=== PATIENT | male | born 1965 | race Caucasian/White ===

== ENCOUNTER 2016-10-06 08:47 | Emergency (ER) | payer MEDICAID, OTHER ==
[2016-10-06 08:58] VITALS: BP 140/92
--- NOTE | 2016-10-06 09:01 | EDM.PDOC ---
ED HPI Trauma - General Chief Complaint: Upper Extremity Injury/Pain Stated Complaint: R ARM INJURY/FALL Time Seen by Provider: 10/06/16 08:56 Source: Reports: Patient, RN notes reviewed, Significant Other History Limitations: Reports: No limitations - History of Present Illness INITIAL COMMENTS - FREE TEXT/NARRATIVE: The patient states that he fell off a [employer] truck yesterday afternoon, 2016. He states that he struck the posterior aspect of his right elbow, and now presents with pain and swelling to the area. He is concerned, because he had right arm ligament repair (biceps tendon?) in 2014. He is otherwise uninjured. Allergies/ADRs: Allergies Penicillins Allergy (Verified 10/06/16 08:55) Anaphylactic Shock Home Medications: Ambulatory Orders Ascorbate Calcium [Vitamin C] 500 mg PO DAILY 09/25/16 [Confirmed 09/25/16] Cyclobenzaprine [Flexeril] 10 mg PO QAM 09/25/16 [Confirmed 09/25/16] Fenofibric Acid (Choline) [Fenofibric Acid] 135 mg PO DAILY 09/25/16 [Confirmed 09/25/16] Furosemide [Lasix] 20 mg PO QPM 09/25/16 [Confirmed 09/25/16] Furosemide [Lasix] 40 mg PO QAM 09/25/16 [Confirmed 09/25/16] Hydrocodone/Acetaminophen [Hydrocodon-Acetaminophn 10-325] 1 tab PO Q6H PRN [Confirmed 09/25/16] Metoprolol Succinate 100 mg PO DAILY 09/25/16 [Confirmed 09/25/16] Nabumetone [Relafen] 750 mg PO BID 09/25/16 [Confirmed 09/25/16] Omeprazole 20 mg PO DAILY 09/25/16 [Confirmed 09/25/16] Simvastatin [Zocor] 10 mg PO DAILY 09/25/16 [Confirmed 09/25/16] metFORMIN HCl [Metformin HCl] 500 mg PO BID 09/25/16 [Confirmed 09/25/16] traMADol [Ultram] 50 mg PO BID 09/25/16 [Confirmed 09/25/16] Past Medical History HEENT History: Reports: Hard of hearing, Impaired vision Other HEENT History: wears glasses, has hearing aids Cardiovascular History: Reports: High cholesterol, Hypertension Respiratory History: Reports: Sleep apnea Gastrointestinal History: Reports: GERD Musculoskeletal History: Reports: Back pain, chronic Other Musculoskeletal History: disk herniation of L4-L5 Endocrine/Metabolic History: Reports: Diabetes, type II, Obesity/BMI 30+ - Infectious Disease History Infectious Disease History: Reports: Chicken pox - Past Surgical History GI Surgical History: Reports: Appendectomy Musculoskeletal Surgical History: Reports: Arthroscopic knee (right), Other ( see below) (Right biceps tendon repair 2014) Social & Family History - Tobacco Use Smoking Status *Q: Current Every Day Smoker Years of Tobacco use: 50 Packs/Tins Daily: 1 - Alcohol Use Alcohol Use History: Yes Alcohol Use Frequency: Socially - Recreational Drug Use Recreational Drug Use: No - Living Situation & Occupation Living situation: Reports: single, with significant other (Girlfriend) Occupation: unemployed Review of Systems - Review of Systems Review Of Systems: See Below Constitutional: Reports: no symptoms Eyes: Reports: no symptoms Ears: Reports: no symptoms Nose: Reports: no symptoms Mouth/Throat: Reports: no symptoms Respiratory: Reports: No Symptoms Cardiovascular: Reports: no symptoms GI/Abdominal: Reports: No symptoms Genitourinary: Reports: no symptoms Musculoskeletal: Reports: no symptoms Skin: Reports: no symptoms Neurological: Reports: No Symptoms Psychiatric: Reports: no symptoms Trauma Exam - Physical Exam Exam: See Below Exam Limited By: No limitations General Appearance: Reports: alert, WD/WN, no apparent distress Extremities: Reports: other (There is erythema and mild swelling to the posterior aspect of the patient's right elbow. No abrasion. The patient reports tenderness to palpation of the erythematous area. The patient has painless active FROM to the right elbow. He denies any tingling or numbness to the right forearm, hand, or fingers. Strong distal pulses.) Course - Vital Signs Last Recorded V/S: Last Vital Signs Temp 36.6 C 10/06/16 08:55 Pulse 92 10/06/16 08:55 Resp 20 10/06/16 08:55 BP 140/92 H 10/06/16 08:55 Pulse Ox 94 L 10/06/16 08:55 - Radiology Interpretation Free Text/Narrative:: 5-view radiographs of the left elbow do not appear to demonstrate any acute injury, such as fracture or dislocation. There is evidence of prior ligament repair. Formal read per the Radiologist pending. - Re-Assessments/Exams Free Text/Narrative Re-Assessment/Exam: 10/06/16 10:23 X-ray results discussed with the patient and his partner. No acute injury seen on x-rays. I am recommending ice and ibuprofen over the weekend, and if he is still having significant pain by Saturday, he can followup with Dr. Yates. Departure - Departure Time of Disposition: 10:24 Disposition: Home, Self-Care 01 Condition: good Clinical Impression: Contusion of right elbow Instructions: Elbow Contusion, [id number] Referrals: Marzena Osorio PA-C [Primary Care Provider] - Ted Yates MD [Physician] - Forms: ED Department Discharge Additional Instructions: You were seen in the emergency room today after falling off a [employer] truck and injuring your right elbow. X-rays done in the ER show no fracture or dislocation. You have MOST LIKELY bruised your right elbow. We recommend apply an ice pack to the back of your right elbow for 10-15 minutes , 4-5 times a day, for 2 days. We recommend you take [id number] ibuprofen, 2-3 tablets (400-600 mg) every 8 hours, with food, as needed for discomfort. If your elbow is still bothering you by this coming week, please followup with the Orthopedic Surgeon Dr. Yates. If any other problems, please do not hesitate to return to the ER.
--- NOTE | 2016-10-07 09:26 | CR ---
Right elbow: Four views of the right elbow were obtained. Comparison: Previous right elbow x-ray of 10/26/12 and MRI right elbow study of 11/04/12. Findings: Surgical change is seen from prior biceps tendon repair. Joint spaces within the wrist are maintained. No discrete joint effusion is seen. No acute fracture or other abnormality is seen. Impression: 1. Previous biceps tendon repair. 2. No acute abnormality is identified on right elbow study. Diagnostic code #2
== END 2016-10-06 10:30 | disposition home or self-care (01) ==
LOC: JD.ED 08:47
DX: S50.01XA Contusion of right elbow, initial encounter (principal); E78.00 Pure hypercholesterolemia, unspecified; K21.9 Gastro-esophageal reflux disease without esophagitis; Z90.49 Acquired absence of other specified parts of digestive tract; F17.210 Nicotine dependence, cigarettes, uncomplicated; Z88.0 Allergy status to penicillin; Z79.899 Other long term (current) drug therapy; W17.89XA Other fall from one level to another, initial encounter
CPT/HCPCS: 73080-26-RT; 73080-RT; 99282; 99283

== ENCOUNTER 2016-10-29 07:00 | Day surgery (SDC) | payer MEDICAID ==
[~2016-10-29 07:00] MED LIST: Lactated Ringers 1,000 ML IV SCH; Lidocaine 1%/Sod Bicarbonate in NS 8.4% 1 ML Syringe IV PRN; Sodium Chloride 0.9% 10 ML Syringe FLUSH PRN
[2016-10-29] MEDS ORDERED: Midazolam 1 MG/ML 2 ML SDV ONE (07:12)
[2016-10-29] MEDS ORDERED: Lidocaine 1% 4 ML ONE (07:12)
[2016-10-29] MEDS ORDERED: Propofol 200 MG/20 ML SDV ONE (07:12)
[2016-10-29] MEDS ORDERED: fentaNYL 100 MCG/2 ML SDV ONE (07:12)
--- NOTE | 2016-10-29 07:25 | PCM.PREANE ---
Preanesthetic Assessment - Anesthesia/Transfusion/Family Hx Anesthesia History: Prior Anesthesia Without Reaction Family History of Anesthesia Reaction: No Transfusion History: No Prior Transfusion(s) - Review of Systems General: No Symptoms Pulmonary: No Symptoms Cardiovascular: No Symptoms, Dyspnea on Exertion Gastrointestinal: No symptoms Neurological: No Symptoms Other: Reports: Easy Bruising, Diabetes - Physical Assessment NPO Status Date: 10/28/16 NPO Status Time: 22:00 Pulse: 81 O2 Sat by Pulse Oximetry: 93 Respiratory Rate: 19 Blood Pressure: 149/81 Temperature: 97.8 F Height: 5 ft 5 in Weight: 131.542 kg ASA Class: 3 Mental Status: Alert & Oriented x3 Airway Class: Mallampati = 2 Dentition: Reports: Edentulous Thyro-Mental Finger Breadths: 2 Mouth Opening Finger Breadths: 3 ROM/Head Extension: Full Lungs: Clear to auscultation, Normal respiratory effort Cardiovascular: Regular Rate, Regular Rhythm - Lab Values: 10/25/16 Lytes WNL BUN 19 Cr 1.3 Hgb 15.1 PLT 302 - Imaging/EKG Impressions: EKG 10/29/16 SR 78 - Allergies Allergies/Adverse Reactions: Allergies Allergy/AdvReac Type Severity Reaction Status Date / Time Penicillins Allergy Anaphylactic Verified 10/26/16 13:52 Shock - Blood Blood Available: No - Anesthesia Plan Pre-Op Medication Ordered: Beta Amanda Beta Amanda: Metoprolol Med Last Dose Date: 10/28/16 Med Last Dose Time: 11:00 - Acknowledgements Anesthesia Type Planned: MAC Pt an Appropriate Candidate for the Planned Anesthesia: Yes Alternatives and Risks of Anesthesia Discussed w Pt/Guardian: Yes Pt/Guardian Understands and Agrees with Anesthesia Plan: Yes PreAnesthesia Questionnaire HEENT History: Reports: Hard of hearing, Impaired vision Other HEENT History: wears glasses, has hearing aids Cardiovascular History: Reports: High cholesterol, Hypertension Other Cardiovascular History: edema Respiratory History: Reports: Sleep apnea Gastrointestinal History: Reports: GERD Other Gastrointestinal History: umbilical hernia, R groin pain, stomach disorder Genitourinary History: Reports: None SALES EXEC History: Reports: None Musculoskeletal History: Reports: Back pain, chronic Other Musculoskeletal History: disk herniation of L4-L5 Neurological History: Reports: None Psychiatric History: Reports: None Endocrine/Metabolic History: Reports: Diabetes, type II, Obesity/BMI 30+ Hematologic History: Reports: None Immunologic History: Reports: None Oncologic (Cancer) History: Reports: None Dermatologic History: Reports: None - Infectious Disease History Infectious Disease History: Reports: Chicken pox - Past Surgical History Head Surgeries/Procedures: Reports: None GI Surgical History: Reports: Appendectomy Musculoskeletal Surgical History: Reports: Arthroscopic knee, Knee replacement, Other (see below) Other Musculoskeletal Surgeries/Procedures:: Right arm ligament repair - SUBSTANCE USE Smoking Status *Q: Current Every Day Smoker (1 ppd for 20 years) Tobacco Use Within Last Twelve Months: Cigarettes Second Hand Smoke Exposure: Yes Days Per Week of Alcohol Use: 1 Number of Drinks Per Day: 6 Total Drinks Per Week: 6 Date of Last Drink: 10/28/16 Time of Last Drink: 19:30 Recreational Drug Use History: No - HOME MEDS Home Medications: Home Meds Ascorbate Calcium [Vitamin C] 500 mg PO DAILY 09/25/16 [History] Cyclobenzaprine [Flexeril] 10 mg PO QAM 09/25/16 [History] Fenofibric Acid (Choline) [Fenofibric Acid] 135 mg PO DAILY 09/25/16 [History] Furosemide [Lasix] 20 mg PO QPM 09/25/16 [History] Furosemide [Lasix] 40 mg PO QAM 09/25/16 [History] Hydrocodone/Acetaminophen [Hydrocodon-Acetaminophn 10-325] 1 tab PO Q6H PRN [History] Metoprolol Succinate 100 mg PO DAILY 09/25/16 [History] Nabumetone [Relafen] 750 mg PO BID 09/25/16 [History] Omeprazole 20 mg PO DAILY 09/25/16 [History] Simvastatin [Zocor] 10 mg PO DAILY 09/25/16 [History] metFORMIN HCl [Metformin HCl] 500 mg PO BID 09/25/16 [History] traMADol [Ultram] 50 mg PO BID 09/25/16 [History] - CURRENT (IN HOUSE) MEDS Current Meds: Current Medications Lactated Ringer's (Ringers, Lactated) 1,000 mls @ 125 mls/hr IV ASDIRECTED MUNA Stop: 10/29/16 23:00 Vancomycin HCl 1 gm/ Sodium (Chloride) 250 mls @ 250 mls/hr IV Q1H MUNA Stop: 10/29/16 08:29 Lidocaine/Sodium Bicarbonate (Buffered Lidocaine 1% In Ns 8.4%) 0.25 ml IV ONETIME PRN PRN Reason: Prior to IV Start Stop: 10/29/16 18:00 Sodium Chloride (Saline Flush) 10 ml FLUSH ASDIRECTED PRN PRN Reason: Keep Vein Open Stop: 10/29/16 18:00 Vancomycin HCl (Pharmacy To Dose - Vancomycin) 1 dose .XX ASDIRECTED MUNA Discontinued Medications Fentanyl (Sublimaze) Confirm Administered Dose 100 mcg .ROUTE .STK-MED ONE Stop: 10/29/16 07:13 Lidocaine HCl (Xylocaine-Mpf 1%) Confirm Administered Dose 4 mls @ as directed .ROUTE .STK-MED ONE Stop: 10/29/16 07:13 Midazolam HCl (Versed 1 Mg/Ml) Confirm Administered Dose 2 mg .ROUTE .STK-MED ONE Stop: 10/29/16 07:13 Propofol (Diprivan 20 Ml) Confirm Administered Dose 200 mg .ROUTE .STK-MED ONE Stop: 10/29/16 07:13
[2016-10-29] MEDS ORDERED: Lidocaine 1% with EPINEPHrine 1:100,000 20 ML MDV ONE (07:28)
[2016-10-29] MEDS ORDERED: Bupivacaine 0.5%/EPINEPHrine 1:200,000 50 ML MDV ONE (07:28)
[2016-10-29] MEDS ORDERED: Ondansetron 4 MG/2 ML SDV IVPUSH PRN (08:18)
--- NOTE | 2016-10-29 09:00 | PCM48HPAN ---
Post Anesthesia Note - EVALUATION WITHIN 48HRS OF ANESTHETIC Vital Signs in Normal Range: Yes Patient Participated in Evaluation: Yes Respiratory Function Stable: Yes Airway Patent: Yes Cardiovascular Function Stable: Yes Hydration Status Stable: Yes Pain Control Satisfactory: Yes Nausea and Vomiting Control Satisfactory: Yes Mental Status Recovered: Yes
--- NOTE | 2016-10-29 09:04 | PCM.OPNOTE ---
- General Post-Op/Procedure Note Date of Surgery/Procedure: 10/29/16 Operative Procedure(s): open umbilical hernia repair with mesh Ventrelex ST Findings: 2 cm defect with an associated superior 3 mm satellite defect. Herniated omental fat with incarceration. Pre Op Diagnosis: symptomatic umbilical hernia Post-Op Diagnosis: incarcerated umbilical hernia Anesthesia Technique: Local, MAC, Moderate sedation Primary Surgeon: El Tenorio Pathology: none EBL in mLs: 1 Complications: None Condition: Good Free Text/Narrative:: Have the supine positioning the abdomen was prepped and draped sterilely for an open umbilical hernia repair. After local analgesia was given a supraumbilical curvilinear incision was made through the skin and subcutaneous tissues with a knife. The incision was deepened with Metzenbaums scissors to the fascia. I circumferentially the umbilical hernia sac from the surrounding subcutaneous tissues. There was chronic scarring in place. There was a small, 3 mm defect just above the umbilical hernia defect. I excised the sac. The sac contained omental fat, which was reduced into the abdominal cavity. A combined th two defects into one. The diameter, was approximately 2 cm. A 4 cm mesh was inserted into the defect and I closed the fascia over the mesh with interrupted 2-0 Ethibond. The umbilicus was reattached to the midline. The subcutaneous tissues were closed with Vicryl. The skin was closed with Vicryl. Steri-Strips and gauze were used for the dressing.
[2016-10-29 09:47] VITALS: BP 144/88
== END 2016-10-29 09:31 | disposition home or self-care (01) ==
LOC: JD.SDS 07:00
PROVIDERS: ATTEND Surgery
PROC: 0WUF0JZ Supplement Abdominal Wall with Synthetic Substitute, Open Approach (ICD-10-PCS; principal; 2016-10-29)
DX: K42.0 Umbilical hernia with obstruction, without gangrene (principal); M19.90 Unspecified osteoarthritis, unspecified site; I10 Essential (primary) hypertension; G89.29 Other chronic pain; K21.9 Gastro-esophageal reflux disease without esophagitis; M51.26 Other intervertebral disc displacement, lumbar region; E78.5 Hyperlipidemia, unspecified; E66.01 Morbid (severe) obesity due to excess calories; G47.33 Obstructive sleep apnea (adult) (pediatric); H90.3 Sensorineural hearing loss, bilateral; F17.210 Nicotine dependence, cigarettes, uncomplicated; E78.00 Pure hypercholesterolemia, unspecified; Z88.0 Allergy status to penicillin; Z79.84 Long term (current) use of oral hypoglycemic drugs; Z79.899 Other long term (current) drug therapy; Z96.659 Presence of unspecified artificial knee joint; Z90.49 Acquired absence of other specified parts of digestive tract; Z98.890 Other specified postprocedural states; Z68.42 Body mass index [BMI] 45.0-49.9, adult
CPT/HCPCS: 49587; 82962; 93005; J2250; J3010; J3370; J7050; J7120; 00750; C1781; J2704

== ENCOUNTER 2017-06-19 09:13 | Day surgery (SDC) | payer MEDICAID ==
[~2017-06-19 09:13] MED LIST changes: -Lidocaine 1%/Sod Bicarbonate in NS 8.4% 1 ML Syringe IV PRN; +Lidocaine 1%/Sod Bicarbonate in NS 8.4% 1 ML Syringe PRN
--- NOTE | 2017-06-19 09:39 | PCM.PREANE ---
Preanesthetic Assessment - Anesthesia/Transfusion/Family Hx Anesthesia History: Prior Anesthesia Without Reaction Family History of Anesthesia Reaction: No Transfusion History: No Prior Transfusion(s) - Review of Systems General: No Symptoms Pulmonary: Shortness of Breath, Cough (Mostly in the morning. ), Sputum, Other ( MARY JANE, Smoker) Cardiovascular: No Symptoms Gastrointestinal: Other (Denies GERD) Neurological: Difficulty Walking Other: Reports: Diabetes, Depression - Physical Assessment NPO Status Date: 06/18/17 NPO Status Time: 17:00 Pulse: 98 O2 Sat by Pulse Oximetry: 94 Respiratory Rate: 20 Blood Pressure: 126/93 Temperature: 36.2 C Weight: 132.903 kg ASA Class: 3 Mental Status: Alert & Oriented x3 Airway Class: Mallampati = 2 Dentition: Reports: Dentures Thyro-Mental Finger Breadths: 3 Mouth Opening Finger Breadths: 3 ROM/Head Extension: Full Lungs: Clear to Auscultation, Normal Respiratory Effort Cardiovascular: Regular Rate, Regular Rhythm - Allergies Allergies/Adverse Reactions: Allergies Allergy/AdvReac Type Severity Reaction Status Date / Time Penicillins Allergy Anaphylactic Verified 06/18/17 08:27 Shock - Acknowledgements Anesthesia Type Planned: MAC Pt an Appropriate Candidate for the Planned Anesthesia: Yes Alternatives and Risks of Anesthesia Discussed w Pt/Guardian: Yes Pt/Guardian Understands and Agrees with Anesthesia Plan: Yes PreAnesthesia Questionnaire HEENT History: Reports: Hard of Hearing, Impaired Vision Other HEENT History: wears glasses, has hearing aids Cardiovascular History: Reports: High Cholesterol, Hypertension Respiratory History: Reports: Sleep Apnea, SOB Gastrointestinal History: Reports: GERD Other Gastrointestinal History: right groin pain, rectal bleeding, umbilical hernia repair, stomach disorder Genitourinary History: Reports: None PEDIATRIC NEPHROLOGIST History: Reports: None Musculoskeletal History: Reports: Arthritis, Back Pain, Chronic Other Musculoskeletal History: disk herniation of L4-L5 Neurological History: Reports: None Psychiatric History: Reports: None Endocrine/Metabolic History: Reports: Diabetes, Type II, Obesity/BMI 30+ Hematologic History: Reports: None Immunologic History: Reports: None Oncologic (Cancer) History: Reports: None Dermatologic History: Reports: None - Infectious Disease History Infectious Disease History: Reports: Chicken Pox - Past Surgical History Head Surgeries/Procedures: Reports: None Respiratory Surgical History: Reports: None GI Surgical History: Reports: Appendectomy, Colonoscopy Female Surgical History: Reports: None Male Surgical History: Reports: None Endocrine Surgical History: Reports: None Neurological Surgical History: Reports: None Musculoskeletal Surgical History: Reports: Arthroscopic Knee, Knee Replacement, Other (See Below) Other Musculoskeletal Surgeries/Procedures:: Right arm ligament repair Dermatological Surgical History: Reports: None - SUBSTANCE USE Smoking Status *Q: Current Every Day Smoker Tobacco Use Within Last Twelve Months: Cigarettes Second Hand Smoke Exposure: Yes Days Per Week of Alcohol Use: 1 Number of Drinks Per Day: 6 Total Drinks Per Week: 6 Recreational Drug Use History: No - HOME MEDS Home Medications: Home Meds Ascorbate Calcium [Vitamin C] 500 mg PO DAILY 09/25/16 [History] Cyclobenzaprine [Flexeril] 10 mg PO QAM 09/25/16 [History] Fenofibric Acid (Choline) [Fenofibric Acid] 135 mg PO DAILY 09/25/16 [History] Furosemide [Lasix] 20 mg PO QPM 09/25/16 [History] Furosemide [Lasix] 40 mg PO QAM 09/25/16 [History] Hydrocodone/Acetaminophen [Hydrocodon-Acetaminophn 10-325] 1 tab PO Q6H PRN [History] Metoprolol Succinate 100 mg PO DAILY 09/25/16 [History] Nabumetone [Relafen] 750 mg PO BID PRN 09/25/16 [History] Omeprazole 20 mg PO DAILY 09/25/16 [History] Simvastatin [Zocor] 10 mg PO BEDTIME 09/25/16 [History] metFORMIN HCl [Metformin HCl] 500 mg PO BID 09/25/16 [History] traMADol [Ultram] 50 mg PO BID PRN 09/25/16 [History] Cholestyramine/Sucrose [Cholestyramine] 1 dose PO BID 06/18/17 [History] Cyanocobalamin (Vitamin B-12) [Vitamin B-12] 2,000 mcg PO DAILY 06/18/17 [ History] Escitalopram [Lexapro] 20 mg PO DAILY 06/18/17 [History] Hydrocortisone [Proctosol-HC] 1 dose TOP BEDTIME 06/18/17 [History] - CURRENT (IN HOUSE) MEDS Current Meds: Current Medications Lactated Ringer's (Ringers, Lactated) 1,000 mls @ 125 mls/hr IV ASDIRECTED MUNA Stop: 06/19/17 23:00 Lidocaine/Sodium Bicarbonate (Buffered Lidocaine 1% In Ns 8.4%) 0.25 ml .XX ONETIME PRN PRN Reason: Prior to IV Start Stop: 06/19/17 18:00 Sodium Chloride (Saline Flush) 10 ml FLUSH ASDIRECTED PRN PRN Reason: Keep Vein Open Stop: 06/19/17 18:00
[2017-06-19] MEDS ORDERED: Propofol 200 MG/20 ML SDV ONE ×2 (10:48→10:58)
[2017-06-19] MEDS ORDERED: Lidocaine 1% 2 ML ONE ×2 (10:49)
--- NOTE | 2017-06-19 11:06 | PCM.OPNOTE ---
- General Post-Op/Procedure Note Date of Surgery/Procedure: 06/19/17 Operative Procedure(s): colonoscopy with ileal and rectal biopsies Findings: normal colonoscopy but poor bowel prep Pre Op Diagnosis: chronic diarrhea Post-Op Diagnosis: same Anesthesia Technique: MAC, Moderate Sedation Primary Surgeon: El Tenorio Pathology: ileal and rectal biopsies EBL in mLs: 0 Complications: None Condition: Good Free Text/Narrative:: After adequate IV sedation and analgesia was obtained with monitoring the patient was placed on his left side. Perianal inspection and digital rectal examination were normal. A lubricated colonoscope was inserted into the rectum and advanced to the cecum without difficulty. The bowel preparation was poor. The cecum was endoscopically normal. I intubated the ileum which was grossly normal but performed a random biopsy for histologic review. The ascending colon transverse and descending colons were also normal with no inflammatory changes. The sigmoid was unremarkable. The rectum likewise in both views was unremarkable. Random rectal biopsy was taken in this area. Photographs were taken for the patient and for the medical record. There were no complications.
[2017-06-19 11:42] VITALS: BP 122/84
== END 2017-06-19 11:24 | disposition home or self-care (01) ==
LOC: JD.SDS 09:13
PROVIDERS: ATTEND Surgery
DX: K52.9 Noninfective gastroenteritis and colitis, unspecified (principal); G89.29 Other chronic pain; M54.5 Low back pain; F32.9 Major depressive disorder, single episode, unspecified; K21.9 Gastro-esophageal reflux disease without esophagitis; E78.5 Hyperlipidemia, unspecified; E66.01 Morbid (severe) obesity due to excess calories; G47.33 Obstructive sleep apnea (adult) (pediatric); E11.9 Type 2 diabetes mellitus without complications; Z88.0 Allergy status to penicillin; Z79.84 Long term (current) use of oral hypoglycemic drugs; Z79.899 Other long term (current) drug therapy; Z90.49 Acquired absence of other specified parts of digestive tract; F17.210 Nicotine dependence, cigarettes, uncomplicated; Z68.42 Body mass index [BMI] 45.0-49.9, adult
CPT/HCPCS: 45380; J7120; 00810; 88305; J2704

== ENCOUNTER 2017-07-23 19:53 | Emergency (ER) | payer MEDICAID ==
[2017-07-23 20:12] VITALS: BP 152/90
--- NOTE | 2017-07-23 20:23 | EDM.PDOC ---
ED HPI GENERAL MEDICAL PROBLEM - General Chief Complaint: Lower Extremity Injury/Pain Stated Complaint: RIGHT KNEE PAIN Time Seen by Provider: 07/23/17 20:22 Source of Information: Reports: Patient History Limitations: Reports: No Limitations - History of Present Illness INITIAL COMMENTS - FREE TEXT/NARRATIVE: Patient presents with acute right knee pain. He states he was lifting a car battery into his vehicle and later in the day right knee began hurting. He denies any fall, trauma, twisting, or other change in activity. He denies any radiation of pain. He states he had a right knee scope done about [address] Eastman. He feels knee is slightly swollen, denies any redness or warmth. He states he tried tramadol without any relief of pain. Patient is well known to me, and is also on an anti-inflammatory medication, nabumetone, which he takes BID. He states neither medication have improved symptoms any. Right Knee Pain Score (Numeric/FACES): 10 - Related Data Allergies Allergy/AdvReac Type Severity Reaction Status Date / Time Penicillins Allergy Anaphylactic Verified 07/23/17 20:12 Shock Home Meds: Home Meds Ascorbate Calcium [Vitamin C] 500 mg PO DAILY 09/25/16 [History] Cyclobenzaprine [Flexeril] 10 mg PO QAM 09/25/16 [History] Fenofibric Acid (Choline) [Fenofibric Acid] 135 mg PO DAILY 09/25/16 [History] Furosemide [Lasix] 20 mg PO QPM 09/25/16 [History] Furosemide [Lasix] 40 mg PO QAM 09/25/16 [History] Hydrocodone/Acetaminophen [Hydrocodon-Acetaminophn 10-325] 1 tab PO BEDTIME [History] Metoprolol Succinate 100 mg PO DAILY 09/25/16 [History] Nabumetone [Relafen] 750 mg PO BID PRN 09/25/16 [History] Omeprazole 20 mg PO DAILY 09/25/16 [History] Simvastatin [Zocor] 10 mg PO BEDTIME 09/25/16 [History] metFORMIN HCl [Metformin HCl] 1,000 mg PO BID 09/25/16 [History] traMADol [Ultram] 100 mg PO BID PRN 09/25/16 [History] Cholestyramine/Sucrose [Cholestyramine] 1 dose PO BID 06/18/17 [History] Cyanocobalamin (Vitamin B-12) [Vitamin B-12] 2,000 mcg PO DAILY 06/18/17 [ History] Escitalopram [Lexapro] 20 mg PO DAILY 06/18/17 [History] Hydrocortisone [Proctosol-HC] 1 applic TOP BEDTIME 06/18/17 [History] Past Medical History HEENT History: Reports: Hard of Hearing, Impaired Vision Other HEENT History: wears glasses, has hearing aids Cardiovascular History: Reports: High Cholesterol, Hypertension Respiratory History: Reports: Sleep Apnea, SOB Gastrointestinal History: Reports: GERD Other Gastrointestinal History: right groin pain, rectal bleeding, umbilical hernia repair, stomach disorder Genitourinary History: Reports: None [employer] SUPER[employer]OR History: Reports: None Musculoskeletal History: Reports: Arthritis, Back Pain, Chronic Other Musculoskeletal History: disk herniation of L4-L5 Neurological History: Reports: None Psychiatric History: Reports: None Endocrine/Metabolic History: Reports: Diabetes, Type II, Obesity/BMI 30+ Hematologic History: Reports: None Immunologic History: Reports: None Oncologic (Cancer) History: Reports: None Dermatologic History: Reports: None - Infectious Disease History Infectious Disease History: Reports: Chicken Pox - Past Surgical History Head Surgeries/Procedures: Reports: None HEENT Surgical History: Reports: None Cardiovascular Surgical History: Reports: None Respiratory Surgical History: Reports: None GI Surgical History: Reports: Appendectomy, Colonoscopy, Hernia Repair/Other Male Surgical History: Reports: None Endocrine Surgical History: Reports: None Neurological Surgical History: Reports: None Musculoskeletal Surgical History: Reports: Arthroscopic Knee, Knee Replacement, Other (See Below) Other Musculoskeletal Surgeries/Procedures:: Right arm ligament repair Dermatological Surgical History: Reports: None Social & Family History - Family History Family Medical History: Noncontributory - Tobacco Use Smoking Status *Q: Former Smoker Years of Tobacco use: 30 Packs/Tins Daily: 1 Used Tobacco, but Quit: Yes Month Tobacco Last Used: 07/2017 Second Hand Smoke Exposure: Yes - Caffeine Use Caffeine Use: Reports: None - Alcohol Use Days Per Week of Alcohol Use: 1 Number of Drinks Per Day: 6 Total Drinks Per Week: 6 - Recreational Drug Use Recreational Drug Use: No - Living Situation & Occupation Living situation: Reports: Single, with Significant Other Occupation: Unemployed Review of Systems - Review of Systems Review Of Systems: See Below Constitutional: Reports: No Symptoms Respiratory: Reports: No Symptoms Cardiovascular: Reports: No Symptoms Musculoskeletal: Reports: Other (right knee pain, anterior aspect, pain is without radiation or swelling at present. Has pain with walking, but not at rest. ) Skin: Reports: No Symptoms Neurological: Reports: No Symptoms Psychiatric: Reports: No Symptoms ED EXAM, GENERAL - Physical Exam Exam: See Below Exam Limited By: No Limitations General Appearance: Alert, WD/WN, Mild Distress (patient states he is mostly uncomfortable lying on hospital bed, not so much due to any acute pain at rest. ) Respiratory/Chest: Lungs Clear, Normal Breath Sounds Cardiovascular: Regular Rate, Rhythm, No Edema, No Murmur Peripheral Pulses: 2+: Femoral (R), Popliteal (R), Posterior Tibial (R), Dorsalis Pedis (R) Extremities: Normal Inspection (right knee without any swelling, redness, warmth. Skin is intact, no lacerations, bruising. ), Limited Range of Motion ( patient has pain with flexion of knee past 90 degrees. No pain with extension, no pain with valus/vargus stressing. Has no pain to palpation over anterior aspect of patella. No pain to palpation of posterior right knee). No: Joint Swelling, Aki's Sign, Redness Neurological: Alert, Oriented, Normal Cognition Psychiatric: Normal Affect, Normal Mood Skin Exam: Warm, Dry, Intact, Normal Color Course - Vital Signs Text/Narrative:: Patient is very well known to my as I also see him routinely in the clinic as his PCP. Patient has history of chronic pain, either to both knees or to his lower back. He states he was lifting a car battery into his vehicle this morning and felt acute onset of right knee pain. He states knee was swollen to the size of a basketball earlier but now on exam he does not have any noted swelling. He has limited ROM with flexion to 90 degrees, but pain present with further flexion. No pain to palpation of right knee, or with full extension of right knee. There is no ligamentous laxity noted, patient does not have pain with valgus/varus stressing. Discussed with patient that I did not feel an xray was necessary, but rather will place in a knee immobilzer and have him followup in clinic, or with orthopedic. Discussed that patient may need an MRI, but this can be done as an outpatient. Patient has tramadol, which he states has not given him any relief of his pain. Will provide patient with a limited qyt of hydrocodone 5-325, and he will need to f/u in clinic or with ortho for further pain management. Last Recorded V/S: Last Vital Signs Temp 96.0 F 07/23/17 20:09 Pulse 80 07/23/17 20:09 Resp 16 07/23/17 20:09 BP 152/90 H 07/23/17 20:09 Pulse Ox 93 L 07/23/17 20:09 Departure - Departure Time of Disposition: 20:39 Disposition: Home, Self-Care 01 Condition: Good Clinical Impression: Right knee pain - Discharge Information Instructions: Knee Immobilizer, [id number] Referrals: Marzena Pagan PA-C [Primary Care Provider] - Forms: ED Department Discharge
== END 2017-07-23 21:00 | disposition home or self-care (01) ==
LOC: JD.ED 19:53
DX: M25.561 Pain in right knee (principal); I10 Essential (primary) hypertension; E11.9 Type 2 diabetes mellitus without complications; E78.00 Pure hypercholesterolemia, unspecified; Z88.0 Allergy status to penicillin; Z79.899 Other long term (current) drug therapy; Z79.84 Long term (current) use of oral hypoglycemic drugs; Z87.891 Personal history of nicotine dependence
CPT/HCPCS: 99283

== ENCOUNTER 2017-07-24 09:04 | Day surgery (SDC) | payer MEDICAID ==
[~2017-07-24 09:04] MED LIST changes: +Lidocaine 1%/Sod Bicarbonate in NS 8.4% 1 ML Syringe IV PRN; -Lidocaine 1%/Sod Bicarbonate in NS 8.4% 1 ML Syringe PRN; +Midazolam 1 MG/ML 2 ML SDV ONE; +Ondansetron 4 MG/2 ML SDV ONE; +Propofol 200 MG/20 ML SDV ONE; +fentaNYL 250 MCG/5 ML SDV ONE
[2017-07-24] MEDS ORDERED: Lidocaine 1% with EPINEPHrine 1:100,000 20 ML MDV ONE (09:05)
[2017-07-24] MEDS ORDERED: Bupivacaine 0.5%/EPINEPHrine 1:200,000 50 ML MDV ONE (09:06)
[2017-07-24] MEDS ORDERED: Albuterol 0.083% 2.5 MG/3 ML Neb Soln NEB ONE (10:30)
[2017-07-24] MEDS ORDERED: Metoprolol Succinate 50 MG Tab.ER PO SCH (10:30)
--- NOTE | 2017-07-24 10:36 | PCM.PREANE ---
Preanesthetic Assessment - Anesthesia/Transfusion/Family Hx Anesthesia History: Prior Anesthesia Without Reaction Family History of Anesthesia Reaction: No Transfusion History: No Prior Transfusion(s) - Review of Systems General: No Symptoms, Other (morbid obesity) Pulmonary: Shortness of Breath, Other (MARY JANE, no CPAP, current smoker 1ppd, last smoked at 916) Cardiovascular: Chest Pain, Dyspnea on Exertion, Other (HTN,HLD, ) Gastrointestinal: Other (GERD) Other: Reports: Diabetes (am glucose 123), Depression - Physical Assessment NPO Status Date: 07/23/17 NPO Status Time: 21:30 Pulse: 101 O2 Sat by Pulse Oximetry: 90 Respiratory Rate: 18 Blood Pressure: 130/90 Temperature: 36.4 C Vital Signs: Last Vital Signs Temp 36.4 C 07/24/17 09:54 Pulse 101 H 07/24/17 09:54 Resp 18 07/24/17 09:54 BP 130/90 07/24/17 09:54 Pulse Ox 90 L 07/24/17 09:54 Height: 1.68 m Weight: 135.171 kg ASA Class: 3 Mental Status: Alert & Oriented x3 Airway Class: Mallampati = 2 Dentition: Reports: Edentulous Thyro-Mental Finger Breadths: 3 Mouth Opening Finger Breadths: 3 ROM/Head Extension: Full Lungs: Clear to Auscultation, Decreased Breath Sounds Cardiovascular: Regular Rate, Regular Rhythm - Lab Values: Laboratory Last Values POC Glucose 123 mg/dL (70-105) H 07/24/17 09:45 - Allergies Allergies/Adverse Reactions: Allergies Allergy/AdvReac Type Severity Reaction Status Date / Time Penicillins Allergy Anaphylactic Verified 07/23/17 20:12 Shock - Blood Blood Available: No Product(s) Available: None - Anesthesia Plan Pre-Op Medication Ordered: None Beta Amanda: Metoprolol Med Last Dose Date: 07/24/17 Med Last Dose Time: 10:45 - Acknowledgements Anesthesia Type Planned: MAC (discussed indepth about risks with decreased oxygenation due to size and smoking) Pt an Appropriate Candidate for the Planned Anesthesia: Yes Alternatives and Risks of Anesthesia Discussed w Pt/Guardian: Yes Pt/Guardian Understands and Agrees with Anesthesia Plan: Yes PreAnesthesia Questionnaire HEENT History: Reports: Hard of Hearing, Impaired Vision Other HEENT History: wears glasses, has hearing aids Cardiovascular History: Reports: High Cholesterol, Hypertension Respiratory History: Reports: Sleep Apnea, SOB Gastrointestinal History: Reports: GERD Other Gastrointestinal History: right groin pain, rectal bleeding, umbilical hernia repair, stomach disorder Genitourinary History: Reports: None OTM CONSULTANT History: Reports: None Musculoskeletal History: Reports: Arthritis, Back Pain, Chronic Other Musculoskeletal History: disk herniation of L4-L5 Neurological History: Reports: None Psychiatric History: Reports: None Endocrine/Metabolic History: Reports: Diabetes, Type II, Obesity/BMI 30+ Hematologic History: Reports: None Immunologic History: Reports: None Oncologic (Cancer) History: Reports: None Dermatologic History: Reports: None - Infectious Disease History Infectious Disease History: Reports: Chicken Pox - Past Surgical History Head Surgeries/Procedures: Reports: None HEENT Surgical History: Reports: None Cardiovascular Surgical History: Reports: None Respiratory Surgical History: Reports: None GI Surgical History: Reports: Appendectomy, Colonoscopy, Hernia Repair/Other Male Surgical History: Reports: None Endocrine Surgical History: Reports: None Neurological Surgical History: Reports: None Musculoskeletal Surgical History: Reports: Arthroscopic Knee, Knee Replacement, Other (See Below) Other Musculoskeletal Surgeries/Procedures:: Right arm ligament repair Dermatological Surgical History: Reports: None - SUBSTANCE USE Smoking Status *Q: Current Every Day Smoker Tobacco Use Within Last Twelve Months: Cigarettes Second Hand Smoke Exposure: No Days Per Week of Alcohol Use: 1 Number of Drinks Per Day: 6 Total Drinks Per Week: 6 Recreational Drug Use History: No - HOME MEDS Home Medications: Home Meds RX: Ascorbate Calcium [Vitamin C] 500 mg PO DAILY 09/25/16 [History] RX: Cyclobenzaprine [Flexeril] 10 mg PO QAM 09/25/16 [History] RX: Fenofibric Acid (Choline) [Fenofibric Acid] 135 mg PO DAILY 09/25/16 [ History] RX: Furosemide [Lasix] 20 mg PO QPM 09/25/16 [History] RX: Furosemide [Lasix] 40 mg PO QAM 09/25/16 [History] RX: Hydrocodone/Acetaminophen [Hydrocodon-Acetaminophn 10-325] 1 tab PO BEDTIME 09/25/16 [History] RX: Metoprolol Succinate 100 mg PO DAILY 09/25/16 [History] RX: Nabumetone [Relafen] 750 mg PO BID PRN 09/25/16 [History] RX: Omeprazole 20 mg PO DAILY 09/25/16 [History] RX: Simvastatin [Zocor] 10 mg PO BEDTIME 09/25/16 [History] RX: metFORMIN HCl [Metformin HCl] 1,000 mg PO BID 09/25/16 [History] RX: traMADol [Ultram] 100 mg PO BID PRN 09/25/16 [History] RX: Cholestyramine/Sucrose [Cholestyramine] 1 dose PO BID 06/18/17 [History] RX: Cyanocobalamin (Vitamin B-12) [Vitamin B-12] 2,000 mcg PO DAILY 06/18/17 [ History] RX: Escitalopram [Lexapro] 20 mg PO DAILY 06/18/17 [History] RX: Hydrocortisone [Proctosol-HC] 1 applic TOP BEDTIME 06/18/17 [History] - CURRENT (IN HOUSE) MEDS Current Meds: Current Medications Albuterol (Proventil Neb Soln) 2.5 mg NEB ONETIME MUNA Lactated Ringer's (Ringers, Lactated) 1,000 mls @ 125 mls/hr IV ASDIRECTED MUNA Stop: 07/24/17 23:00 Last Admin: 07/24/17 09:40 Dose: 125 mls/hr Clindamycin Phosphate 900 mg/ (Dextrose/Water) 106 mls @ 212 mls/hr IV ONETIME ONE Stop: 07/24/17 11:29 Lidocaine/Sodium Bicarbonate (Buffered Lidocaine 1% In Ns 8.4%) 0.25 ml IV ONETIME PRN PRN Reason: Prior to IV Start Stop: 07/24/17 18:00 Last Admin: 07/24/17 09:40 Dose: 0.25 ml Metoprolol Succinate (Toprol Xl) 100 mg PO ONETIME MUNA Sodium Chloride (Saline Flush) 10 ml FLUSH ASDIRECTED PRN PRN Reason: Keep Vein Open Stop: 07/24/17 18:00 Discontinued Medications Bupivacaine HCl/Epinephrine Bitart (Marcaine 0.5%/Epinephrine 1:200,000) Confirm Administered Dose 50 ml .ROUTE .STK-MED ONE Stop: 07/24/17 09:07 Fentanyl (Sublimaze) Confirm Administered Dose 250 mcg .ROUTE .STK-MED ONE Stop: 07/24/17 07:12 Lidocaine/Epinephrine (Xylocaine 1% With Epinephrine 1:100,000) Confirm Administered Dose 20 ml .ROUTE .STK-MED ONE Stop: 07/24/17 09:06 Midazolam HCl (Versed 1 Mg/Ml) Confirm Administered Dose 2 mg .ROUTE .STK-MED ONE Stop: 07/24/17 07:12 Ondansetron HCl (Zofran) Confirm Administered Dose 4 mg .ROUTE .STK-MED ONE Stop: 07/24/17 07:12 Propofol (Diprivan 20 Ml) Confirm Administered Dose 200 mg .ROUTE .STK-MED ONE Stop: 07/24/17 07:12
[2017-07-24] MEDS ORDERED: Midazolam 1 MG/ML 2 ML SDV ONE (10:54)
[2017-07-24] MEDS ORDERED: Clindamycin Phosphate 900 MG in Dextrose 5% in Water 100 ML IV ONE ×2 (11:00)
[2017-07-24] MEDS ORDERED: Ketamine 500 mg/10 ML MDV ONE (11:18)
--- NOTE | 2017-07-24 11:34 | PCM.OPNOTE ---
- General Post-Op/Procedure Note Date of Surgery/Procedure: 07/24/17 Operative Procedure(s): Umbilical Scar revision Findings: The previous umbilical mesh had eroded through the overlying now necrotic ischemic skin and was not healing. This area of skin necrosis and mesh was excised. Fortunately there was no purulence or any kind of clinical evidence of infection. Pre Op Diagnosis: Mesh erosion through umbilical skin with scarring and nonhealing Post-Op Diagnosis: Same Anesthesia Technique: Local, MAC, Moderate Sedation Primary Surgeon: El Tenorio Pathology: None EBL in mLs: 2 Complications: None Condition: Good Free Text/Narrative:: After adequate IV sedation and analgesia was obtained with monitoring the patient's abdomen was prepped and draped sterilely for the procedure. About 20 mL of local analgesia was infused into the skin and subcutaneous tissues of the umbilical area. A 5 cm elliptically based excision of the previous scar was then performed with a 15 blade and cautery. The tongues of the underlying mesh were excised along with scar tissue to debride this area. I then raised superior flaps of skin and subcutaneous tissues with cautery. I then brought the flap down to close the excision site securing it to the inferior skin flap which was slightly undermined but less so with interrupted 2-0 nylon suture. 6 sutures were used to close the site. He tolerated the procedure well and there were no complications. Gauze and Tegaderm were used for the dressing.
[2017-07-24 12:02] VITALS: BP 128/86
== END 2017-07-24 12:14 | disposition home or self-care (01) ==
LOC: JD.SDS 09:04
PROVIDERS: ATTEND Surgery
DX: T83.718A Erosion of other implanted mesh to organ or tissue, initial encounter (principal); M19.90 Unspecified osteoarthritis, unspecified site; I10 Essential (primary) hypertension; K52.9 Noninfective gastroenteritis and colitis, unspecified; F32.9 Major depressive disorder, single episode, unspecified; K21.9 Gastro-esophageal reflux disease without esophagitis; E78.5 Hyperlipidemia, unspecified; E66.01 Morbid (severe) obesity due to excess calories; G47.33 Obstructive sleep apnea (adult) (pediatric); H90.3 Sensorineural hearing loss, bilateral; E11.9 Type 2 diabetes mellitus without complications; F17.210 Nicotine dependence, cigarettes, uncomplicated; Z88.0 Allergy status to penicillin; Z79.899 Other long term (current) drug therapy; Z79.84 Long term (current) use of oral hypoglycemic drugs; Z90.89 Acquired absence of other organs; Z96.659 Presence of unspecified artificial knee joint; Z68.30 Body mass index [BMI] 30.0-30.9, adult
CPT/HCPCS: 00830; 82962; 93005; 94640; A9270-GY; J2250; J2405; J2704; J3010; J7060; J7120

== ENCOUNTER 2017-10-22 08:33 | Day surgery (SDC) | payer MEDICAID ==
[~2017-10-22 08:33] MED LIST changes: +Cefuroxime 10 MG/ML SYRINGE EYERT SCH; -Lactated Ringers 1,000 ML IV SCH; +Lidocaine 1% PF 2 ML SDV INJECT SCH; -Lidocaine 1%/Sod Bicarbonate in NS 8.4% 1 ML Syringe IV PRN; -Midazolam 1 MG/ML 2 ML SDV ONE; -Ondansetron 4 MG/2 ML SDV ONE; +Pilocarpine 4% Ophth Soln 15 ML Bot EYERT SCH; -Propofol 200 MG/20 ML SDV ONE; -Sodium Chloride 0.9% 10 ML Syringe FLUSH PRN; -fentaNYL 250 MCG/5 ML SDV ONE
[2017-10-22] MEDS: Polymyxin B/Trimethoprim 10 ML Bottle EYERT SCH ×3 (09:25→11:19)
[2017-10-22] MEDS: Brimonidine 0.2% Ophth Soln 5 ML Bottle EYERT SCH ×3 (09:31→11:19)
[2017-10-22] MEDS: Phenylephrine 2.5% Ophth Soln 2 ML Bot EYERT SCH ×6 (09:34→11:04)
--- NOTE | 2017-10-22 09:44 | PCM.PREANE ---
Preanesthetic Assessment - Anesthesia/Transfusion/Family Hx Anesthesia History: Prior Anesthesia Without Reaction Family History of Anesthesia Reaction: No Transfusion History: No Prior Transfusion(s) - Review of Systems General: No Symptoms Pulmonary: Shortness of Breath, Other (Currenty every day smoker. Last one at 0800 this morning. Sleep apnea not using CPAP.) Cardiovascular: Dyspnea on Exertion Gastrointestinal: No Symptoms, Other (Morbid Obesity) Neurological: No Symptoms Other: Reports: Diabetes, Depression - Physical Assessment NPO Status Date: 10/21/17 NPO Status Time: 21:30 O2 Sat by Pulse Oximetry: 92 Respiratory Rate: 20 Vital Signs: Last Vital Signs Temp 36.6 C 10/22/17 09:20 Pulse 96 10/22/17 09:20 Resp 20 10/22/17 09:20 BP 137/89 10/22/17 09:20 Pulse Ox 92 L 10/22/17 09:20 Height: 1.68 m Weight: 138.346 kg ASA Class: 3 Mental Status: Alert & Oriented x3 Airway Class: Mallampati = 3 Dentition: Reports: Missing Tooth/Teeth (No teeth, does not have dentures. ) Thyro-Mental Finger Breadths: 3 Mouth Opening Finger Breadths: 3 ROM/Head Extension: Full Lungs: Clear to Auscultation, Normal Respiratory Effort Cardiovascular: Regular Rate, Regular Rhythm - Allergies Allergies/Adverse Reactions: Allergies Allergy/AdvReac Type Severity Reaction Status Date / Time Penicillins Allergy Anaphylactic Verified 10/21/17 14:02 Shock - Anesthesia Plan Beta Amanda: Metoprolol Med Last Dose Date: 10/21/17 Med Last Dose Time: 09:00 (Will take when he can eat today. ) - Acknowledgements Anesthesia Type Planned: MAC Pt an Appropriate Candidate for the Planned Anesthesia: Yes Alternatives and Risks of Anesthesia Discussed w Pt/Guardian: Yes Pt/Guardian Understands and Agrees with Anesthesia Plan: Yes PreAnesthesia Questionnaire HEENT History: Reports: Hard of Hearing, Impaired Vision Other HEENT History: wears glasses, has hearing aids Cardiovascular History: Reports: High Cholesterol, Hypertension Respiratory History: Reports: Sleep Apnea, SOB Gastrointestinal History: Reports: GERD Other Gastrointestinal History: right groin pain, rectal bleeding, umbilical hernia repair, stomach disorder Genitourinary History: Reports: None DOPEMAN History: Reports: None Musculoskeletal History: Reports: Arthritis, Back Pain, Chronic Other Musculoskeletal History: disk herniation of L4-L5 Neurological History: Reports: None Psychiatric History: Reports: None Endocrine/Metabolic History: Reports: Diabetes, Type II, Obesity/BMI 30+ Hematologic History: Reports: None Immunologic History: Reports: None Oncologic (Cancer) History: Reports: None Dermatologic History: Reports: None - Infectious Disease History Infectious Disease History: Reports: Chicken Pox - Past Surgical History Head Surgeries/Procedures: Reports: None HEENT Surgical History: Reports: None Cardiovascular Surgical History: Reports: None Respiratory Surgical History: Reports: None GI Surgical History: Reports: Appendectomy, Colonoscopy, Hernia Repair/Other Male Surgical History: Reports: None Endocrine Surgical History: Reports: None Neurological Surgical History: Reports: None Musculoskeletal Surgical History: Reports: Arthroscopic Knee, Knee Replacement, Other (See Below) Other Musculoskeletal Surgeries/Procedures:: Right arm ligament repair Dermatological Surgical History: Reports: None - SUBSTANCE USE Smoking Status *Q: Former Smoker Tobacco Use Within Last Twelve Months: Cigarettes Second Hand Smoke Exposure: No Days Per Week of Alcohol Use: 1 Number of Drinks Per Day: 6 Total Drinks Per Week: 6 Recreational Drug Use History: No - HOME MEDS Home Medications: Home Meds Ascorbate Calcium [Vitamin C] 500 mg PO DAILY 09/25/16 [History] Cyclobenzaprine [Flexeril] 10 mg PO QAM 09/25/16 [History] Fenofibric Acid (Choline) [Fenofibric Acid] 135 mg PO DAILY 09/25/16 [History] Furosemide [Lasix] 20 mg PO QPM 09/25/16 [History] Furosemide [Lasix] 40 mg PO QAM 09/25/16 [History] Hydrocodone/Acetaminophen [Hydrocodon-Acetaminophn 10-325] 1 tab PO BEDTIME [History] Metoprolol Succinate 100 mg PO DAILY 09/25/16 [History] Nabumetone [Relafen] 750 mg PO BID PRN 09/25/16 [History] Omeprazole 20 mg PO DAILY 09/25/16 [History] Simvastatin [Zocor] 10 mg PO BEDTIME 09/25/16 [History] traMADol [Ultram] 100 mg PO BID PRN 09/25/16 [History] Cholestyramine/Sucrose [Cholestyramine] 1 dose PO BID 06/18/17 [History] Cyanocobalamin (Vitamin B-12) [Vitamin B-12] 2,000 mcg PO DAILY 06/18/17 [ History] Escitalopram [Lexapro] 20 mg PO DAILY 06/18/17 [History] Hydrocortisone [Proctosol-HC] 1 applic TOP BEDTIME 06/18/17 [History] Empagliflozin [Jardiance] 10 mg PO DAILY 10/21/17 [History] - CURRENT (IN HOUSE) MEDS Current Meds: Current Medications Brimonidine Tartrate (Alphagan 0.2% Ophth Soln) 0 ml EYERT ASDIRECTED MUNA Stop: 10/22/17 18:00 Last Admin: 10/22/17 09:31 Dose: 1 drop Cefuroxime Sodium (Zinacef) 0 mg EYERT ASDIRECTED MUNA Stop: 10/22/17 18:00 Lidocaine HCl (Xylocaine-Mpf 1%) 10 ml INJECT ASDIRECTED MUNA Stop: 10/22/17 18:00 Phenylephrine HCl (Han-Synephrine 2.5% Ophth Soln) 0 ml EYERT ASDIRECTED MUNA Stop: 10/22/17 18:00 Last Admin: 10/22/17 09:34 Dose: 1 drop Pilocarpine HCl (Pilocar 4% Ophth Soln) 0 ml EYERT ASDIRECTED MUNA Stop: 10/22/17 18:00 Polymyxin/Trimethoprim Sulfate (Polytrim Ophth Soln) 0 ml EYERT ASDIRECTED MUNA Stop: 10/22/17 18:00 Last Admin: 10/22/17 09:25 Dose: 1 drop Tetracaine HCl (Tetracaine 0.5% Steri-Unit Rosi) 0 ml EYERT ASDIRECTED MUNA Stop: 10/22/17 18:00 Tropicamide (Mydriacyl 1% Ophth Soln) 0 ml EYERT ASDIRECTED MUNA Stop: 10/25/17 14:16
[2017-10-22] MEDS: Tetracaine HCl/PF 0.5% 4 ML Bottle EYERT SCH ×2 (10:42→11:14)
--- NOTE | 2017-10-22 11:23 | PCM48HPAN ---
Post Anesthesia Note - EVALUATION WITHIN 48HRS OF ANESTHETIC Vital Signs in Normal Range: Yes Patient Participated in Evaluation: Yes Respiratory Function Stable: Yes Airway Patent: Yes Cardiovascular Function Stable: Yes Hydration Status Stable: Yes Pain Control Satisfactory: Yes Nausea and Vomiting Control Satisfactory: Yes Mental Status Recovered: Yes Resp Rate: 20
[2017-10-22 11:37] VITALS: BP 142/93
== END 2017-10-22 11:33 | disposition home or self-care (01) ==
LOC: JD.SDS 08:33
PROVIDERS: ATTEND Ophthalmology
DX: H25.813 Combined forms of age-related cataract, bilateral (principal); H02.834 Dermatochalasis of left upper eyelid; H02.831 Dermatochalasis of right upper eyelid; E11.3293 Type 2 diabetes mellitus with mild nonproliferative diabetic retinopathy without macular edema, bilateral; E11.36 Type 2 diabetes mellitus with diabetic cataract; E78.00 Pure hypercholesterolemia, unspecified; I10 Essential (primary) hypertension; F17.210 Nicotine dependence, cigarettes, uncomplicated; G47.30 Sleep apnea, unspecified; K21.9 Gastro-esophageal reflux disease without esophagitis; M19.90 Unspecified osteoarthritis, unspecified site; E66.9 Obesity, unspecified; Z68.30 Body mass index [BMI] 30.0-30.9, adult; Z88.0 Allergy status to penicillin; Z79.899 Other long term (current) drug therapy; Z79.84 Long term (current) use of oral hypoglycemic drugs
CPT/HCPCS: 66984; C1780; J0697; A9270-GY; J2001

== ENCOUNTER 2017-11-30 19:48 | Emergency (ER) | payer MEDICAID ==
[2017-11-30 19:55] VITALS: BP 140/99
--- NOTE | 2017-11-30 20:48 | EDM.PDOC ---
ED HPI GENERAL MEDICAL PROBLEM - General Chief Complaint: Upper Extremity Injury/Pain Stated Complaint: RIGHT ELBOW INJURY Time Seen by Provider: 11/30/17 19:55 Source of Information: Reports: Patient, Family () History Limitations: Reports: No Limitations - History of Present Illness INITIAL COMMENTS - FREE TEXT/NARRATIVE: The patient states that he injured his right elbow about 2 or 3 years ago when changing a tire on his 's vehicle. He states that he was using a four-way tire iron, and was pulling up with his right arm, when there was a pop and pain in his right antecubital fossa. He is not sure what injury he suffered, but he underwent reparative surgery at [facility]. The patient states that he was moving furniture today and felt something "pop" in his right antecubital fossa, very similar to his prior injury. He immediately had pain in that area, and believes that the area is swollen. He is otherwise uninjured. The patient's PCP is Marzena Pagan. Right Shoulder Pain Score (Numeric/FACES): 10 - Related Data Allergies Allergy/AdvReac Type Severity Reaction Status Date / Time Penicillins Allergy Anaphylactic Verified 11/27/17 15:34 Shock Home Meds: Home Meds Ascorbate Calcium [Vitamin C] 500 mg PO DAILY 09/25/16 [History] Cyclobenzaprine [Flexeril] 10 mg PO QAM 09/25/16 [History] Fenofibric Acid (Choline) [Fenofibric Acid] 135 mg PO DAILY 09/25/16 [History] Furosemide [Lasix] 20 mg PO QPM 09/25/16 [History] Furosemide [Lasix] 40 mg PO QAM 09/25/16 [History] Hydrocodone/Acetaminophen [Hydrocodon-Acetaminophn 10-325] 1 tab PO BEDTIME [History] Metoprolol Succinate 100 mg PO DAILY 09/25/16 [History] Nabumetone [Relafen] 750 mg PO BID PRN 09/25/16 [History] Omeprazole 20 mg PO DAILY 09/25/16 [History] Simvastatin [Zocor] 10 mg PO BEDTIME 09/25/16 [History] traMADol [Ultram] 100 mg PO BID PRN 09/25/16 [History] Cholestyramine/Sucrose [Cholestyramine] 1 dose PO BID 06/18/17 [History] Cyanocobalamin (Vitamin B-12) [Vitamin B-12] 2,000 mcg PO DAILY 06/18/17 [ History] Escitalopram [Lexapro] 20 mg PO DAILY 06/18/17 [History] Empagliflozin [Jardiance] 10 mg PO DAILY 10/21/17 [History] Past Medical History HEENT History: Reports: Hard of Hearing, Impaired Vision Other HEENT History: wears glasses, has hearing aids Cardiovascular History: Reports: High Cholesterol, Hypertension Respiratory History: Reports: Sleep Apnea Gastrointestinal History: Reports: GERD, PUD Musculoskeletal History: Reports: Arthritis, Back Pain, Chronic (L4/L5 DDD) Endocrine/Metabolic History: Reports: Diabetes, Type II, Obesity/BMI 30+ - Infectious Disease History Infectious Disease History: Reports: Chicken Pox - Past Surgical History HEENT Surgical History: Reports: Oral Surgery (All teeth extracted) GI Surgical History: Reports: Appendectomy, Colonoscopy, Hernia Repair/Other ( umbilical) Musculoskeletal Surgical History: Reports: Arthroscopic Knee, Knee Replacement, Other (See Below) (Right biceps tendon repair) Social & Family History - Family History Family Medical History: Noncontributory - Tobacco Use Smoking Status *Q: Current Every Day Smoker Years of Tobacco use: 37 Packs/Tins Daily: 1.5 Packs/Tins Daily Comment: Down from 3 ppd - Caffeine Use Caffeine Use: Reports: Coffee, Soda - Alcohol Use Alcohol Use History: Yes Alcohol Use Frequency: Socially - Recreational Drug Use Recreational Drug Use: No - Living Situation & Occupation Living situation: Reports: , with Spouse Occupation: Unemployed Review of Systems - Review of Systems Review Of Systems: ROS reveals no pertinent complaints other than HPI. ED EXAM, GENERAL - Physical Exam Exam: See Below Exam Limited By: No Limitations General Appearance: Alert, WD/WN, No Apparent Distress Extremities: Other (The patient is obese, therefore swelling to the right antecubital fossa is difficult to discern, but there are no other visible abnormalities, such as erythema, ecchymosis, or abrasion. There is tenderness to palpation over the biceps tendon, however, the tendon is palpable. There is fair strength and visible biceps head muscle curvature with flexion of the elbow against resistance, and the patient has good supination strength. Neurovascular status of the right upper extremity is intact.) Course - Vital Signs Last Recorded V/S: Last Vital Signs Temp 36.7 C 11/30/17 19:53 Pulse 83 11/30/17 19:53 Resp 18 11/30/17 19:53 BP 140/99 H 11/30/17 19:53 Pulse Ox 94 L 11/30/17 19:53 - Re-Assessments/Exams Free Text/Narrative Re-Assessment/Exam: 11/30/17 20:46 [facility] One Call ontacted at 20:40. Case then discussed with Dr. Fred Snyder, Orthopedic Surgeon early intervention school psychologist. Based on the patient's history and physical examination, he suspects a partial biceps tendon tear. He recommends conservative therapy with an arm sling, weight restrictions of no more than 5 pounds to the right arm, and follow-up with Dr. Yates in one week. Departure - Departure Time of Disposition: 20:48 Disposition: Home, Self-Care 01 Condition: Good Clinical Impression: Traumatic partial tear of right biceps tendon - Discharge Information Referrals: Marzena Pagan PA-C [Primary Care Provider] - Ted Yates MD [Physician] - Additional Instructions: You were seen in the emergency room after injuring your right elbow when lifting furniture. Your case was discussed with the Orthopedic Surgeon Dr. Fred Snyder, at [facility]. Based on your history and physical examination, you likely have a strain or partial tear of your biceps tendon. Your right arm has been placed into a sling. Wear this for comfort only. You are not to lift more than 5 pounds with your right arm. Take [id number] ibuprofen, 2-3 tablets (400-600 mg) every 8 hours, with food, as needed for pain. Follow-up with the Orthopedic Surgeon Dr. Yates on or about Wednesday, December 06, 2017. If any other problems, please do not hesitate to return to the ER.
[2017-11-30] MEDS ORDERED: Ibuprofen 600 MG Tab PO ONE (20:51)
== END 2017-11-30 21:03 | disposition home or self-care (01) ==
LOC: JD.ED 19:48
DX: S46.211A Strain of muscle, fascia and tendon of other parts of biceps, right arm, initial encounter (principal); Z88.0 Allergy status to penicillin; Z79.899 Other long term (current) drug therapy; E78.00 Pure hypercholesterolemia, unspecified; I10 Essential (primary) hypertension; E11.9 Type 2 diabetes mellitus without complications; K21.9 Gastro-esophageal reflux disease without esophagitis; X50.9XXA Other and unspecified overexertion or strenuous movements or postures, initial encounter
CPT/HCPCS: 99283; A9270

== ENCOUNTER 2019-06-22 14:27 | Emergency (ER) | payer MEDICAID, SELFPAY ==
[2019-06-22] MEDS ORDERED: Lidocaine 1% 10 ML MDV INJECT ONE (14:40)
[2019-06-22] MEDS ORDERED: Sulfamethoxazole/Trimethoprim 800-160 MG Tab PO ONE (14:41)
[2019-06-22 14:48] VITALS: BP 136/100; PULSE 115
--- NOTE | 2019-06-22 15:10 | EDM.PDOC ---
ED HPI GENERAL MEDICAL PROBLEM - General Chief Complaint: Skin Complaint Stated Complaint: SKIN COMPLAINT Time Seen by Provider: 06/22/19 14:37 Source of Information: Reports: Patient, Family History Limitations: Reports: No Limitations - History of Present Illness INITIAL COMMENTS - FREE TEXT/NARRATIVE: Patient's unfortunate 54-year-old obese male presents today with complaint of abscess to left groin. Symptoms started 2 days ago and progressively worsened since the abscess and electrocautery was abdomen has ruptured and is draining purulent drainage abscess in his groin has not. Patient had a similar episode in his right axilla which is artery ruptured and healed no chills no nausea no vomiting no shortness of breath Treatments PILOT SUPERVISOR: Reports: Other (see below) Other Treatments PILOT SUPERVISOR: none Left Lower Abdominal Pain Score (Numeric/FACES): 5 - Related Data Allergies Allergy/AdvReac Type Severity Reaction Status Date / Time Penicillins Allergy Anaphylactic Verified 02/16/19 22:29 Shock Home Meds: Home Meds Ascorbate Calcium [Vitamin C] 500 mg PO DAILY 09/25/16 [History] Cyclobenzaprine [Flexeril] 10 mg PO QAM 09/25/16 [History] Fenofibric Acid (Choline) [Fenofibric Acid] 135 mg PO DAILY 09/25/16 [History] Furosemide [Lasix] 20 mg PO QPM 09/25/16 [History] Furosemide [Lasix] 40 mg PO QAM 09/25/16 [History] Hydrocodone/Acetaminophen [Hydrocodon-Acetaminophn 10-325] 1 tab PO BEDTIME [History] Metoprolol Succinate 100 mg PO DAILY 09/25/16 [History] Nabumetone [Relafen] 750 mg PO BID PRN 09/25/16 [History] Omeprazole 20 mg PO DAILY 09/25/16 [History] Simvastatin [Zocor] 10 mg PO BEDTIME 09/25/16 [History] traMADol [Ultram] 100 mg PO BID PRN 09/25/16 [History] Cholestyramine/Sucrose [Cholestyramine] 1 dose PO BID 06/18/17 [History] Cyanocobalamin (Vitamin B-12) [Vitamin B-12] 2,000 mcg PO DAILY 06/18/17 [ History] Escitalopram [Lexapro] 20 mg PO DAILY 06/18/17 [History] oxyCODONE HCl/Acetaminophen [Percocet 5-325 mg Tablet] 1 - 2 each PO Q4H PRN # 20 tablet 02/16/19 [Rx] Sulfamethoxazole/Trimethoprim [Bactrim Ds Tablet] 1 tab PO BID #14 tablet [Rx] Past Medical History HEENT History: Reports: Hard of Hearing, Impaired Vision Other HEENT History: wears glasses, has hearing aids Cardiovascular History: Reports: High Cholesterol, Hypertension Respiratory History: Reports: COPD, Sleep Apnea Gastrointestinal History: Reports: GERD, PUD Other Gastrointestinal History: right groin pain, rectal bleeding, umbilical hernia repair, stomach disorder Genitourinary History: Reports: None VEHICLE INSPECTOR History: Reports: None Musculoskeletal History: Reports: Arthritis, Back Pain, Chronic, Osteoarthritis , Other (See Below) (Chronic pain right knee more to do with patellofemoral articulation.) Other Musculoskeletal History: disk herniation of L4-L5 Neurological History: Reports: None Psychiatric History: Reports: Depression Endocrine/Metabolic History: Reports: Diabetes, Type II, Obesity/BMI 30+ Hematologic History: Reports: None Immunologic History: Reports: None Oncologic (Cancer) History: Reports: None Dermatologic History: Reports: Venous Stasis Dermatitis (Chronic venous stasis dermatitis in both lower extremities.) - Infectious Disease History Infectious Disease History: Reports: Chicken Pox - Past Surgical History Head Surgeries/Procedures: Reports: None HEENT Surgical History: Reports: Oral Surgery GI Surgical History: Reports: Appendectomy, Colonoscopy, Hernia Repair/Other Male Surgical History: Reports: None Neurological Surgical History: Reports: None Musculoskeletal Surgical History: Reports: Arthroscopic Knee Dermatological Surgical History: Reports: None Social & Family History - Family History Family Medical History: Noncontributory Oncologic: Reports: Pancreatic - Caffeine Use Caffeine Use: Reports: Coffee - Living Situation & Occupation Living situation: Reports: , with Spouse Occupation: Unemployed ED ROS GENERAL - Review of Systems Review Of Systems: See Below Constitutional: Denies: Fever, Chills Skin: Reports: Other (abscess ) ED EXAM, SKIN/RASH Exam: See Below Exam Limited By: No Limitations General Appearance: Alert, WD/WN, Mild Distress, Obese Nose: Normal Inspection, Normal Mucosa, No Blood Throat/Mouth: Normal Inspection, Normal Lips, Normal Teeth, Normal Gums, Normal Oropharynx, Normal Voice, No Airway Compromise Respiratory/Chest: No Respiratory Distress, Lungs Clear, Normal Breath Sounds, No Accessory Muscle Use, Chest Non-Tender Cardiovascular: Normal Peripheral Pulses, Regular Rate, Rhythm, No Edema, No Gallop, No JVD, No Murmur, No Rub GI/Abdominal: Normal Bowel Sounds, Soft, Non-Tender, No Organomegaly, No Distention, No Abnormal Bruit, No Mass Back Exam: Normal Inspection, Full Range of Motion, NT Extremities: Normal Inspection, Normal Range of Motion, Non-Tender, No Pedal Edema, Normal Capillary Refill Skin: Warm, Dry, No Rash, Other (Centimeter abscess to left inguinal moderate erythema positive induration positive swelling, centimeter abscess to left lower quadrant of abdomen ruptured already draining) ED SKIN PROCEDURES - I&D Progress/Comments: Incision and drainage of abscess: Betadine prep, local anesthesia lidocaine 1% 2 males, one was incised #11 blade moderate amount of purulent drainage obtained when was irrigated with NS and Betadine loculations dissected with forceps patient tolerated procedure well quadrant showed a form gauze packing instilled dressing by nursing Course - Vital Signs Last Recorded V/S: Last Vital Signs Temp 96.4 F 06/22/19 14:46 Pulse 115 H 06/22/19 14:46 Resp 20 06/22/19 14:46 BP 136/100 H 06/22/19 14:46 Pulse Ox 92 L 06/22/19 14:46 - Orders/Labs/Meds Orders: Active Orders 24 hr Category Date Time Status CULTURE WOUND [RM] Stat Lab 06/22/19 14:40 Ordered Meds: Medications Discontinued Medications Generic Name Dose Route Start Last Admin Trade Name Donaldo PRN Reason Stop Dose Admin Lidocaine HCl 10 ml 06/22/19 14:40 06/22/19 15:01 Xylocaine 1% INJECT 06/22/19 14:41 10 ml ONETIME ONE Administration Trimethoprim/Sulfamethoxazole 2 tab 06/22/19 14:41 06/22/19 15:01 Septra Ds PO 06/22/19 14:42 2 tab ONETIME ONE Administration Departure - Departure Time of Disposition: 15:11 Disposition: Home, Self-Care 01 Clinical Impression: Abscess - Discharge Information Prescriptions: Sulfamethoxazole/Trimethoprim [Bactrim Ds Tablet] 1 tab PO BID #14 tablet Instructions: Skin Abscess Referrals: Ej,Marzena Juli, PA-C [Primary Care Provider] - Additional Instructions: Home, rest, keep wound clean and dry, clean wound daily, packing out in 24 hours , return as needed for worsening condition Sepsis Event Note - Evaluation Sepsis Screening Result: No Definite Risk - Focused Exam Vital Signs: Vital Signs Temp Pulse Resp BP Pulse Ox 06/22/19 14:46 96.4 F 115 H 20 136/100 H 92 L Date Exam was Performed: 06/22/19 Time Exam was Performed: 15:04 - My Orders Last 24 Hours: My Active Orders 06/22/19 14:40 CULTURE WOUND [RM] Stat - Assessment/Plan Last 24 Hours: My Active Orders 06/22/19 14:40 CULTURE WOUND [RM] Stat
== END 2019-06-22 15:24 | disposition home or self-care (01) ==
LOC: JD.ED 14:27
DX: L02.211 Cutaneous abscess of abdominal wall (principal); I10 Essential (primary) hypertension; E66.9 Obesity, unspecified; J44.9 Chronic obstructive pulmonary disease, unspecified; F32.9 Major depressive disorder, single episode, unspecified; E78.00 Pure hypercholesterolemia, unspecified; E11.9 Type 2 diabetes mellitus without complications; K21.9 Gastro-esophageal reflux disease without esophagitis; Z88.0 Allergy status to penicillin; Z68.43 Body mass index [BMI] 50.0-59.9, adult; Z79.899 Other long term (current) drug therapy
CPT/HCPCS: 10061; 87070; 99283; A9270; J2001; 10060

== ENCOUNTER 2021-03-02 13:15 | Day surgery (SDC) | payer MEDICAID ==
[2021-03-02] MEDS: Polymyxin B/Trimethoprim 10 ML Bottle EYELF SCH ×3 (13:11→14:06)
[2021-03-02] MEDS: Brimonidine 0.2% Ophth Soln 5 ML Bottle EYELF SCH ×4 (13:14→14:06)
[~2021-03-02 13:15] MED LIST changes: +Cefuroxime 10 MG/ML SYRINGE EYELF SCH; -Cefuroxime 10 MG/ML SYRINGE EYERT SCH; +Pilocarpine 4% Ophth Soln 15 ML Bot EYELF SCH; -Pilocarpine 4% Ophth Soln 15 ML Bot EYERT SCH
[2021-03-02] MEDS: Phenylephrine 2.5% Ophth Soln 2 ML Bot EYELF SCH ×5 (13:16→13:47)
[2021-03-02] MEDS: Tropicamide 1% Ophth Soln 15 ML Bottle EYELF SCH ×4 (13:18→13:35)
[2021-03-02] MEDS: Tetracaine HCl/PF 0.5% 4 ML Bottle EYEBOTH SCH ×4 (13:36→13:55)
--- NOTE | 2021-03-02 13:41 | PCM.PREANE ---
Preanesthetic Assessment - Procedure Proposed Procedure: right cataract - Anesthesia/Transfusion/Family Hx Anesthesia History: Prior Anesthesia Without Reaction Family History of Anesthesia Reaction: No Transfusion History: No Prior Transfusion(s) - Review of Systems General: No Symptoms Pulmonary: No Symptoms Cardiovascular: No Symptoms Gastrointestinal: No Symptoms Neurological: No Symptoms Other: Reports: Diabetes, Depression - Physical Assessment NPO Status Date: 03/01/21 NPO Status Time: 19:00 Vital Signs: 143/90 98 90-92% 98.1 Height: 5 ft 6 in Weight: 138 kg ASA Class: 3 Mental Status: Alert & Oriented x3 Airway Class: Mallampati = 3 Dentition: Reports: Edentulous Thyro-Mental Finger Breadths: 3 Mouth Opening Finger Breadths: 3 ROM/Head Extension: Full Lungs: Clear to Auscultation, Normal Respiratory Effort Cardiovascular: Regular Rate, Regular Rhythm - Lab Values: Laboratory Last Values POC Glucose 102 mg/dL (70-99) H 03/02/21 13:16 - Allergies Allergies/Adverse Reactions: Allergies Allergy/AdvReac Type Severity Reaction Status Date / Time Penicillins Allergy Anaphylactic Verified 03/01/21 13:23 Shock - Blood Blood Available: No - Anesthesia Plan Med Last Dose Date: 03/01/21 Med Last Dose Time: 09:00 - Acknowledgements Anesthesia Type Planned: MAC Pt an Appropriate Candidate for the Planned Anesthesia: Yes Alternatives and Risks of Anesthesia Discussed w Pt/Guardian: Yes Pt/Guardian Understands and Agrees with Anesthesia Plan: Yes PreAnesthesia Questionnaire HEENT History: Reports: Hard of Hearing, Impaired Vision Other HEENT History: wears glasses, has hearing aids Cardiovascular History: Reports: High Cholesterol, Hypertension Respiratory History: Reports: COPD, Sleep Apnea (cpap) Gastrointestinal History: Reports: GERD, PUD Other Gastrointestinal History: right groin pain, rectal bleeding, umbilical hernia repair, stomach disorder Genitourinary History: Reports: None INTEGRATION ANALYST History: Reports: None Musculoskeletal History: Reports: Arthritis, Back Pain, Chronic, Osteoarthritis, Other (See Below) (Chronic pain right knee more to do with patellofemoral articulation.) Other Musculoskeletal History: disk herniation of L4-L5 Neurological History: Reports: None Psychiatric History: Reports: Depression Endocrine/Metabolic History: Reports: Diabetes, Type II, Obesity/BMI 30+ Hematologic History: Reports: None Immunologic History: Reports: None Oncologic (Cancer) History: Reports: None Dermatologic History: Reports: Venous Stasis Dermatitis (Chronic venous stasis dermatitis in both lower extremities.) - Infectious Disease History Infectious Disease History: Reports: Chicken Pox - Past Surgical History Head Surgeries/Procedures: Reports: None HEENT Surgical History: Reports: Oral Surgery GI Surgical History: Reports: Appendectomy, Colonoscopy, Hernia Repair/Other Male Surgical History: Reports: None Neurological Surgical History: Reports: None Musculoskeletal Surgical History: Reports: Arthroscopic Knee Dermatological Surgical History: Reports: None - SUBSTANCE USE Tobacco Use Status *Q: Current Every Day Tobacco User Tobacco Use Within Last Twelve Months: Cigarettes Second Hand Smoke Exposure: Yes Days Per Week of Alcohol Use: 1 Recreational Drug Use History: No - HOME MEDS Home Medications: Home Meds Ascorbate Calcium [Vitamin C] 500 mg PO DAILY 09/25/16 [History] Fenofibric Acid (Choline) [Fenofibric Acid] 135 mg PO DAILY 09/25/16 [History] Furosemide [Lasix] 40 mg PO QAM 09/25/16 [History] Metoprolol Succinate 100 mg PO DAILY 09/25/16 [History] Nabumetone [Relafen] 750 mg PO BID PRN 09/25/16 [History] Omeprazole 20 mg PO DAILY 09/25/16 [History] traMADol [Ultram] 100 mg PO BID PRN 09/25/16 [History] Cyanocobalamin (Vitamin B-12) [Vitamin B-12] 2,000 mcg PO DAILY 06/18/17 [History] Escitalopram [Lexapro] 20 mg PO DAILY 06/18/17 [History] Aspirin [Aspirin EC] 81 mg PO DAILY 03/01/21 [History] Calcium Carbonate [Calcium] 500 mg PO DAILY 03/01/21 [History] Cholecalciferol (Vitamin D3) [Vitamin D3] 400 unit PO DAILY 03/01/21 [History] Cider Vinegar [Apple Cider Vinegar] 300 mg PO DAILY 03/01/21 [History] Dicyclomine [Bentyl] 10 mg PO DAILY 03/01/21 [History] L.acidoph,Paracasei, B.lactis [Probiotic] 1 cap PO DAILY 03/01/21 [History] Losartan [Cozaar] 25 mg PO DAILY 03/01/21 [History] Multivitamin 1 tab .ROUTE DAILY 03/01/21 [History] atorvaSTATin [Lipitor] 10 mg PO DAILY 03/01/21 [History] metFORMIN [Glucophage] 500 mg PO DAILY 03/01/21 [History] - CURRENT (IN HOUSE) MEDS Current Meds: Current Medications Brimonidine Tartrate (Brimonidine 0.2% Ophth Soln 5 Ml Bottle) 0 ml EYELF ASDIRECTED MUNA Stop: 03/02/21 18:00 Last Admin: 03/02/21 13:32 Dose: 1 drop Documented by: Cefuroxime Sodium (Cefuroxime 10 Mg/Ml Syringe) 0 mg EYELF ASDIRECTED MUNA Stop: 03/02/21 18:00 Lidocaine HCl (Lidocaine 1% Pf 2 Ml Sdv) 0 ml INJECT ASDIRECTED MUNA Stop: 03/02/21 18:00 Phenylephrine HCl (Phenylephrine 2.5% Ophth Soln 2 Ml Bot) 0 ml EYELF ASDIRECTED MUNA Stop: 03/02/21 18:00 Last Admin: 03/02/21 13:33 Dose: 1 drop Documented by: Pilocarpine HCl (Pilocarpine 4% Ophth Soln 15 Ml Bot) 0 ml EYELF ASDIRECTED MUNA Stop: 03/02/21 18:00 Polymyxin/Trimethoprim Sulfate (Polymyxin B/Trimethoprim 10 Ml Bottle) 0 ml EYELF ASDIRECTED MUNA Stop: 03/02/21 18:00 Last Admin: 03/02/21 13:28 Dose: 1 drop Documented by: Tetracaine HCl (Tetracaine Hcl/Pf 0.5% 4 Ml Bottle) 0 ml EYEBOTH ASDIRECTED MUNA Stop: 03/02/21 18:00 Tropicamide (Tropicamide 1% Ophth Soln 15 Ml Bottle) 0 ml EYELF ASDIRECTED MUNA Stop: 03/02/21 18:00 Last Admin: 03/02/21 13:35 Dose: 1 drop Documented by:
--- NOTE | 2021-03-02 14:09 | PCM48HPAN ---
Post Anesthesia Note - EVALUATION WITHIN 48HRS OF ANESTHETIC Vital Signs in Normal Range: Yes Patient Participated in Evaluation: Yes Respiratory Function Stable: Yes Airway Patent: Yes Cardiovascular Function Stable: Yes Hydration Status Stable: Yes Pain Control Satisfactory: Yes Nausea and Vomiting Control Satisfactory: Yes Mental Status Recovered: Yes Vital Signs: 120/86 95% RA 86 20 97.0
[2021-03-02 14:39] VITALS: BP 139/99; PULSE 90
== END 2021-03-02 14:15 | disposition home or self-care (01) ==
LOC: JD.SDS 13:15
PROVIDERS: ATTEND Ophthalmology
DX: E11.36 Type 2 diabetes mellitus with diabetic cataract (principal); H25.811 Combined forms of age-related cataract, right eye; H16.103 Unspecified superficial keratitis, bilateral; H16.223 Keratoconjunctivitis sicca, not specified as Sjogren's, bilateral; E78.00 Pure hypercholesterolemia, unspecified; I10 Essential (primary) hypertension; F17.210 Nicotine dependence, cigarettes, uncomplicated; Z96.1 Presence of intraocular lens; Z88.0 Allergy status to penicillin; Z79.82 Long term (current) use of aspirin; Z79.84 Long term (current) use of oral hypoglycemic drugs; Z79.899 Other long term (current) drug therapy
CPT/HCPCS: 66984; 82947; J0697; V2632

== ENCOUNTER 2024-11-03 23:21 | Emergency (ER) | payer MEDICAID ==
[~2024-11-03 23:21] MED LIST changes: -Cefuroxime 10 MG/ML SYRINGE EYELF SCH; +EPINEPHrine 1:10,000 1 MG/10 ML Syringe ONE; -Lidocaine 1% PF 2 ML SDV INJECT SCH; -Pilocarpine 4% Ophth Soln 15 ML Bot EYELF SCH
[2024-11-03] MEDS ORDERED: EPINEPHrine 1:10,000 1 MG/10 ML Syringe ONE ×7 (23:24→23:42)
[2024-11-03] MEDS ORDERED: Sodium Bicarbonate 8.4% 50 MEQ/50 ML Syringe ONE (23:25)
[2024-11-03] MEDS ORDERED: Sodium Chloride 0.9% 1,000 ML IV ONE (23:27)
[2024-11-03] MEDS ORDERED: Amiodarone 150 MG/3 ML SDV ONE (23:38)
[2024-11-03] MEDS ORDERED: Calcium Chloride 10% 1 GM/10 ML Syringe ONE (23:39)
[2024-11-04 00:12] VITALS: PULSE 126
== END 2024-11-04 02:05 | disposition expired ==
LOC: JD.ED 23:21
DX: I46.9 Cardiac arrest, cause unspecified (principal); I10 Essential (primary) hypertension; E78.00 Pure hypercholesterolemia, unspecified; J44.9 Chronic obstructive pulmonary disease, unspecified; E11.9 Type 2 diabetes mellitus without complications; Z88.0 Allergy status to penicillin; Z79.899 Other long term (current) drug therapy; Z79.82 Long term (current) use of aspirin; Z79.84 Long term (current) use of oral hypoglycemic drugs
CPT/HCPCS: 92950; 92960; 96374; 96375; 99285; 99285-25; J0171; J0282; J3490; J7030